=== PATIENT | male | born 1980 | race Caucasian/White ===

== ENCOUNTER 2016-10-12 20:22 | Emergency (ER) | payer OTHER ==
[~2016-10-12] VITALS: Ht 177.8 cm; Wt 89.8 kg
[2016-10-12] MEDS ORDERED: BACTRIM DS 8001 TA1 PO (21:18)
--- NOTE | 2016-10-12 21:19 | Emergency Room Report ---
History of Present Illness Time Seen by MD [id number] Presenting Problem in Triage Pt arrived:Walked Presenting Problem:PT STATES A PIECE OF METAL FELL OUT OF HIS BARN AND HIT HIM ON HEAD. -LOC. 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 N Clinical Suspician of Infection? N Mental Status: 1 - Regular (Normal Baseline) Sepsis Risk:Possible Sepsis Risk Have you (or family members/close friends) recently traveled outside the [place]? N If Yes, where/when: Have you had exposure to infectious disease within the past month? TB? Other? Specify: Source patient, RN notes reviewed, family, RN/MD Exam Limitations no limitations Comment This is a 35-year-old male patient presenting to the emergency room with a RIGHT parietal scalp laceration after piece of metal fell off on his head , while working in his [employer]. Patient has any loss of consciousness, blurred vision, nausea, vomiting, seizure-like activity. ALLERGIES Coded Allergies: No Known Allergies (10/12/16) History Medical History General CAD? No Angina: No NE: No Hypertension? No Hyperlipidemia? No CHF? No DVT? No PE? No COPD? No Asthma? No Anemia? No GERD? No Gastric ulcers? No GI Bleed? No Hernia? No Thyroid Problems? No Hypothyroidism? No CVA? No Seizures? No Diabetes? No Renal Insuffiency? No End Stage Renal Disease? No UTI? No Stones? No BPH? No GB Disease: No Nephritic Syndrome? No Asplenia? No Hepatitis? No Sickle Cell Disease? No Arthritis? No Migraines? No Cataracts? No Glaucoma? No MRSA? No HIV? No TB? No Anxiety? No Depression? No Cancer? No More? No Immunization Hx DT/Tetanus Unknown Surgical Hx Previous Surgery?Y SKIN GRAFT SURGERY Social History Smoking Hx Smoker: Current Every Day Smoker Tobacco: Yes Type Cigarettes Alcohol Alcohol: No Review of Systems All Other Systems Reviewed and Negative Skin lesions (laceration) Physical Exam Vital Signs Vital Signs Date Time Temp Pulse Resp B/P Pulse O2 O2 Flow FiO2 Ox Delivery Rate 10/12 2130 80 20 108/68 99 10/12 2029 98.0 113 20 147/99 99 General Appearance normal appearance, WD/WN, mild distress Eye Exam - bilateral eye normal exam, bilateral eye PERRL, bilateral eye EOMI, bilateral eye other (normal fundi) Neck normal inspection, non-tender, supple, full range of motion Respiratory Status Yes: trachea midline, chest symmetrical, non tender chest. No: respiratory distress. Lung Sounds bilateral: normal breath sounds, lungs clear. Cardiovascular normal exam, regular rate/rhythm, no peripheral edema, no gallop, no JVD, no murmur, no rub, normal peripheral pulses Gastrointestinal normal bowel sounds, normal exam, non tender, soft, no organomegaly Back normal inspection, no CVA tenderness, no vertebral tenderness Neurologic alert, narcotics and vice detective II-XII nml as tested, normal exam, oriented x 3 Mental status normal mood/affect Skin normal color, warm/dry, 4 cm RIGHT parietal scalp laceration all the way to the skull, no foreign bodies noticed. Medical Decision Making LABS/Meds/Orders Pt receiving controlled substance in ED? No Comment Patient tolerated the procedure well, advised to keep wound clean and dry, watch carefully for signs of possible local infection, have the roe removed in urgent treatment care center in 12-14 days. Results/Orders Current Medication Orders Sig/Ceasar Start time Last Medication Dose Route Stop Time Status Admin Diphtheria/Pertussis/ 0 .STK-MED ONE 10/12 2120 DC Tetanus Vacc IM Trimethoprim/ 0 .STK-MED ONE 10/12 2120 DC Sulfamethoxazole PO Trimethoprim/ 1 TABLET ONCE ONE 10/12 2114 DCr 10/12 Sulfamethoxazole PO 10/12 Lidocaine HCl 0 .STK-MED ONE 10/12 2054 DC .ROUTE Diphtheria/Pertussis/ 0.5 ML ONCE ONE 10/12 2029 DC 10/12 Tetanus Vacc IM 10/12 Orders Procedure Date/time Status WOUND CARE PER NURSE 10/12 2114 Active Procedures Laceration/Wound Repair Laceration/Wound Repair Risks/benefits discussed with pt/guardian? Yes Tetanus status not up to date Wound Location RIGHT parietal scalp Wound Length (cm) 3 Wound's Depth, Shape sucutaneous tissue, linear Wound Explored no FB identified Risk of retained FB explained to pt/guardian? Yes Irrigated w/ Saline (ccs) 20 Wound Prep Betadine, Saline Anesthesia 1% Lidocaine, Local Volume Anesthetic (ccs) 20 Wound Debrided none Wound Repaired With roe Total Number Sutures 6 Sterile Dressing Applied Yes Departure Departure Time of Disposition 2115 Disposition DC Home or Self Care(routine) Clinical Impression Primary Impression: Scalp laceration Qualifiers: Encounter type: initial encounter Qualified Code: S01.01XA - Laceration without foreign body of scalp, initial encounter Condition STABLE Patient Instructions DI for Open Laceration Additional Instructions Please keep wound clean and dry, change dressing daily, watch carefully for signs of possible local infection, follow-up with [facility] in ~12 for staple removal. Discharge Counseling Counseled pt/family regarding diagnosis, medications/RX, home care, follow up needs Comment Please keep wound clean and dry, change dressing daily, watch carefully for signs of possible local infection, follow-up with [facility] in ~12 for staple removal. Prescriptions Current Visit Scripts SULFAMETHOXAZOLE W/TRIMETHOPRI (Bactrim Ds Tab) 1 TABLET PO BID #20 TAB ED Critical Care Critical Care No at 0240
[2016-10-12 21:30] VITALS: BP 108/68
== END 2016-10-12 21:31 | disposition home or self-care (01) ==
LOC: ER 20:22
PROC: 0HQ0XZZ Repair Scalp Skin, External Approach (ICD-10-PCS; principal; 2016-10-12)
DX: S01.01XA Laceration without foreign body of scalp, initial encounter (principal); Z23 Encounter for immunization; Z72.0 Tobacco use; W22.8XXA Striking against or struck by other objects, initial encounter; Y92.71 Barn as the place of occurrence of the external cause